=== PATIENT | female | born 1960 | race Two or more races ===

== ENCOUNTER 2017-01-01 00:39 | Inpatient (IN) | payer MEDICARE, OTHER ==
[~2017-01-01] VITALS: Ht 160 cm; Wt 54.4 kg
[2017-01-01] MEDS ORDERED: ONDANSETRON HCL 4MG/2ML VIAL IV STA (02:24)
[2017-01-01] MEDS ORDERED: SODIUM CHLORIDE 0.9% 1,000 ML IV ONE (02:24)
[2017-01-01] MEDS ORDERED: KETOROLAC 30MG/ML VIAL IV STA (02:24)
[2017-01-01 03:26] LABS: BASOPHILS % 0.3 % (0.0-2.0); EOSINOPHILS % 1.8 % (0.0-5.0); HEMATOCRIT. 39.9 % (36.0-48.0); HEMOGLOBIN. 13.5 g/dL (12.0-16.0); LYMPHOCYTES % 36.9 % (20.0-50.0); MEAN CORPUSCULAR HEMOGLOBIN 31.3 pg (28.0-32.0); MEAN CORPUSCULAR VOLUME 92.5 fL (81.0-99.0); MEAN PLATELET VOLUME 7.4 fl (7.4-10.4); MONOCYTES % 5.4 % (2.0-8.0); NEUTROPHILS % 55.6 % (40.0-76.0); PLATELET 242 x1000/uL (130-400); RED BLOOD CELL COUNT 4.31 mill/uL (4.2-5.4); RED CELL DISTRIBUTION WIDTH 13.6 % (11.6-14.6)
[2017-01-01 03:35] LABS: CHLORIDE 110 mEq/L (98-107)
[2017-01-01 03:36] LABS: PROTHROMBIN TIME 10.2 sec (9.4-11.6)
[2017-01-01 03:44] LABS: CARBON DIOXIDE 28 mEq/L (21-32)
[2017-01-01 03:50] LABS: CLARITY URINE CLOUDY (CLEAR); COLOR URINE YELLOW (YELLOW); GLUCOSE URINE NEGATIVE (NEGATIVE); KETONES URINE NEGATIVE (NEGATIVE); LEUKOCYTE ESTERASE URINE TRACE (NEGATIVE); NITRITE URINE NEGATIVE (NEGATIVE); OCCULT BLOOD URINE TRACE (NEGATIVE); PROTEIN URINE NEGATIVE (NEGATIVE); SPECIFIC GRAVITY URINE 1.035 (1.005-1.030)
[2017-01-01 05:02] LABS: *AMPHETAMINES SCREEN URINE NEGATIVE (NEGATIVE); *BARBITURATES SCREEN URINE NEGATIVE (NEGATIVE); *BENZODIAZEPINES SCREEN URINE NEGATIVE (NEGATIVE); *COCAINE SCREEN URINE NEGATIVE (NEGATIVE); CANNABINOID URINE SCREEN NEGATIVE (NEGATIVE); METHADONE URINE SCREEN NEGATIVE (NEGATIVE); OPIATES URINE SCREEN NEGATIVE (NEGATIVE); PHENCYCLIDINE URINE SCREEN NEGATIVE (NEGATIVE)
[2017-01-01] MEDS ORDERED: ASPIRIN 81MG TABLET PO ONE (05:45)
[2017-01-01] MEDS ORDERED: LEVOFLOXACIN 750MG PREMIX 150 ML IV ONE (06:00)
[2017-01-01] MEDS ORDERED: IOHEXOL-300 100 ML BOTTLE ONE (07:00)
[2017-01-01] MEDS ORDERED: KETOROLAC 15MG/ML VIAL IV ONE (08:30)
[2017-01-01] MEDS ORDERED: DOCUSATE SODIUM 100MG CAPSULE PO ONE (08:30)
[2017-01-01] MEDS ORDERED: SODIUM CHLORIDE 0.45% 1,000 ML IV SCH (08:38)
[2017-01-01] MEDS ORDERED: HYDROCODONE/ACETAMINOPHEN 5/325MG TABLET PO PRN (08:45)
[2017-01-01] MEDS ORDERED: ACETAMINOPHEN 650MG SUPP PR PRN (08:45)
[2017-01-01] MEDS ORDERED: SIMETHICONE 80MG TABLET CHEW PO PRN (08:45)
[2017-01-01] MEDS ORDERED: ACETAMINOPHEN 325MG TABLET PO PRN (08:45)
[2017-01-01] MEDS ORDERED: ONDANSETRON HCL 4MG/2ML VIAL IV PRN (08:45)
[2017-01-01] MEDS ORDERED: IPRATROPIUM/ALBUTEROL 0.5-3(2.5)MG/3ML NEB INH PRN (08:45)
[2017-01-01] MEDS ORDERED: ACETAMINOPHEN 650MG/20.3ML UDC GT PRN (08:45)
[2017-01-01] MEDS ORDERED: MAGNESIUM/ALUMINUM HYDROXIDE/SIMETHICONE 30ML UDC PO PRN (08:45)
[2017-01-01] MEDS ORDERED: NA PHOS,M-B/NA PHOS,DI-BA ENEMA 118ML PR PRN (08:45)
[2017-01-01] MEDS ORDERED: SODIUM CHLORIDE 0.9% 100 ML IV ONE (08:45)
[2017-01-01] MEDS ORDERED: CLONIDINE 0.1MG TABLET PO PRN (08:45)
[2017-01-01] MEDS ORDERED: DIPHENHYDRAMINE 50MG/ML VIAL IV PRN (08:45)
[2017-01-01 10:35] VITALS: BP 145/91
[2017-01-01] MEDS: ENOXAPARIN 40MG/0.4ML SYR SUBCUT SCH ×2 (10:46→11:49)
[2017-01-01] MEDS ORDERED: MAGNESIUM/ALUMINUM HYDROXIDE/SIMETHICONE 30ML UDC PO NR (10:50)
[2017-01-01 12:00] VITALS: BP 115/76
[2017-01-01] MEDS ORDERED: MAGNESIUM CITRATE 300ML SOLUTION PO NR (12:00)
[2017-01-01] MEDS: SODIUM CHLORIDE 0.45% 1,000 ML IV SCH (12:34)
[2017-01-01] MEDS: SODIUM CHLORIDE 0.9% INJ 3ML FLUSH IVF SCH (14:25)
[2017-01-01 16:00] VITALS: BP 142/71
[2017-01-01 18:25] LABS: T4 FREE 0.96 ng/dL (0.76-1.46)
[2017-01-01 18:39] LABS: FOLIC ACID (FOLATE) SERUM 11.5 ng/mL (>5.38)
[2017-01-01 20:00] VITALS: BP 123/81
[2017-01-02] VITALS: BP 110/52
[2017-01-02] MEDS: SODIUM CHLORIDE 0.45% 1,000 ML IV SCH (02:26)
[2017-01-02] MEDS: SODIUM CHLORIDE 0.9% INJ 3ML FLUSH IVF SCH ×2 (02:26→06:00)
[2017-01-02 04:00] VITALS: BP 100/58
[2017-01-04] MEDS ORDERED: NO HOME MEDICATIONS (07:59)
== END 2017-01-02 08:50 | disposition left against medical advice (07) | DRG 690 ==
LOC: ER 00:39 → EDBD 00:39 → 6EST 03:12 → EDBEDREQ 06:01 → ENRESERV 09:12
PROVIDERS: ADMIT Family Medicine; ATTEND Family Medicine
DX: N39.0 Urinary tract infection, site not specified (principal); G62.9 Polyneuropathy, unspecified; R53.1 Weakness; R26.9 Unspecified abnormalities of gait and mobility; M48.061 Spinal stenosis, lumbar region without neurogenic claudication; M51.36 Other intervertebral disc degeneration, lumbar region; Z99.3 Dependence on wheelchair; K59.09 Other constipation; H53.8 Other visual disturbances; I10 Essential (primary) hypertension; H54.7 Unspecified visual loss; M47.892 Other spondylosis, cervical region; M54.9 Dorsalgia, unspecified
CPT/HCPCS: 36415; 70450; 71010; 72125; 72128; 72148; 74000; 74177; 80053; 80305; 81001; 82550; 82553; 82607; 82746; 83036; 83690; 84439; 84443; 84481; 85025; 85610; 93005; 96365; 96366; 96375; 96376; 97162; 97166; 99285; A6261; G0482; J1650; J1885; J1956; J2405; J7030; J7050; Q9967; A4315

== ENCOUNTER 2018-02-04 22:25 | Inpatient (IN) | payer MEDICARE, OTHER ==
[~2018-02-04] VITALS: Ht 165.1 cm; Wt 67.1 kg
[~2018-02-04 22:25] MED LIST: LEVO500T2 MT
[2018-02-05] VITALS: BP 107/65
[2018-02-05] MEDS ORDERED: DIATR MEGLU/DIATRIZOATE SOLN 30ML ONE (04:30)
[2018-02-05 06:20] LABS: CLARITY URINE CLEAR (CLEAR); COLOR URINE YELLOW (YELLOW); KETONES URINE NEGATIVE (NEGATIVE); LEUKOCYTE ESTERASE URINE TRACE (NEGATIVE); NITRITE URINE NEGATIVE (NEGATIVE); OCCULT BLOOD URINE NEGATIVE (NEGATIVE); PROTEIN URINE NEGATIVE (NEGATIVE); UROBILINOGEN URINE 0.2 E.U./dL (0.2-1.0)
[2018-02-05 06:50] LABS: BASOPHILS % 0.8 % (0.0-2.0); EOSINOPHILS % 2.7 % (0.0-5.0); HEMATOCRIT. 38.3 % (36.0-48.0); HEMOGLOBIN. 12.9 g/dL (12.0-16.0); LYMPHOCYTES % 40.9 % (20.0-50.0); MEAN CORPUSCULAR HEMOGLOBIN 30.9 pg (28.0-32.0); MEAN CORPUSCULAR VOLUME 91.8 fL (81.0-99.0); MEAN PLATELET VOLUME 8.5 fl (7.4-10.4); MONOCYTES % 5.1 % (2.0-8.0); NEUTROPHILS % 50.5 % (40.0-76.0); PLATELET 295 x1000/uL (130-400); RED BLOOD CELL COUNT 4.18 mill/uL (4.2-5.4); RED CELL DISTRIBUTION WIDTH 13.7 % (11.6-14.6)
[2018-02-05] MEDS ORDERED: ACETAMINOPHEN 325MG TABLET PO ONE (08:30)
[2018-02-05] MEDS ORDERED: NA PHOS,M-B/NA PHOS,DI-BA ENEMA 118ML PR ONE (08:30)
[2018-02-05] MEDS ORDERED: SODIUM CHLORIDE 0.9% 1,000 ML IV ONE (08:30)
[2018-02-05 09:32] LABS: CHLORIDE 107 mEq/L (98-107)
[2018-02-05] MEDS ORDERED: ONDANSETRON HCL 4MG/2ML INJ IV PRN (10:00)
[2018-02-05 10:50] VITALS: BP 143/71
[2018-02-05 16:00] VITALS: BP 152/86
[2018-02-05] MEDS ORDERED: LACTULOSE 20G/30ML UDC PO PRN (18:15)
[2018-02-05] MEDS ORDERED: IOHEXOL-300 100 ML BOTTLE ONE (19:03)
[2018-02-05 20:00] VITALS: BP 139/91
[2018-02-05] MEDS: ACETAMINOPHEN 325MG TABLET PO PRN (22:11)
[2018-02-05] MEDS: CEFTRIAXONE 1 G PREMIX 50 ML IV SCH (23:15)
[2018-02-05] MEDS: DOCUSATE SODIUM 250MG CAPSULE PO SCH (23:16)
[2018-02-06] VITALS: BP 107/65
[2018-02-06 04:00] VITALS: BP 102/63
[2018-02-06 08:00] VITALS: BP 136/78
[2018-02-06] MEDS: BISACODYL 10MG SUPP PR PRN (08:46)
[2018-02-06] MEDS: DOCUSATE SODIUM 250MG CAPSULE PO SCH (08:46)
[2018-02-06 12:00] VITALS: BP 108/65
[2018-02-06 12:15] LABS: BASOPHILS % 0.4 % (0.0-2.0); EOSINOPHILS % 2.6 % (0.0-5.0); HEMATOCRIT. 36.3 % (36.0-48.0); HEMOGLOBIN. 12.1 g/dL (12.0-16.0); LYMPHOCYTES % 35.4 % (20.0-50.0); MEAN CORPUSCULAR HEMOGLOBIN 30.3 pg (28.0-32.0); MEAN CORPUSCULAR VOLUME 90.7 fL (81.0-99.0); MEAN PLATELET VOLUME 7.6 fl (7.4-10.4); MONOCYTES % 5.4 % (2.0-8.0); NEUTROPHILS % 56.2 % (40.0-76.0); PLATELET 254 x1000/uL (130-400); RED CELL DISTRIBUTION WIDTH 13.7 % (11.6-14.6)
[2018-02-06] MEDS: ACETAMINOPHEN 325MG TABLET PO PRN (12:24)
[2018-02-06 12:31] LABS: CHLORIDE 106 mEq/L (98-107)
[2018-02-06] MEDS: CEFTRIAXONE 1 G PREMIX 50 ML IV SCH (18:16)
[2018-02-06 20:00] VITALS: BP 94/51
[2018-02-07 08:00] VITALS: BP 120/77
[2018-02-07] MEDS: DOCUSATE SODIUM 250MG CAPSULE PO SCH (08:29)
[2018-02-07 12:00] VITALS: BP 126/76
[2018-02-07] MEDS: BISACODYL 10MG SUPP PR PRN (13:52)
[2018-02-07 16:00] VITALS: BP 117/78
[2018-02-07] MEDS: MULTIVITAMINS,THER W-MINERALS TABLET PO SCH (16:13)
[2018-02-07 17:54] LABS: *AMPHETAMINES SCREEN URINE NEGATIVE (NEGATIVE); *BARBITURATES SCREEN URINE NEGATIVE (NEGATIVE); *BENZODIAZEPINES SCREEN URINE NEGATIVE (NEGATIVE); *COCAINE SCREEN URINE NEGATIVE (NEGATIVE); CANNABINOID URINE SCREEN NEGATIVE (NEGATIVE); METHADONE URINE SCREEN NEGATIVE (NEGATIVE)
[2018-02-07 17:57] LABS: PHENCYCLIDINE URINE SCREEN NEGATIVE (NEGATIVE)
[2018-02-07 17:58] LABS: OPIATES URINE SCREEN NEGATIVE (NEGATIVE)
[2018-02-07] MEDS: CEFTRIAXONE 1 G PREMIX 50 ML IV SCH (18:17)
[2018-02-07 20:00] VITALS: BP 130/70
[2018-02-07] MEDS: ASCORBIC ACID 500 MG TABLET PO SCH (21:17)
[2018-02-08] VITALS: BP 128/69
[2018-02-08 04:00] VITALS: BP 135/81
[2018-02-08 08:00] VITALS: BP 100/59
[2018-02-08] MEDS: ASCORBIC ACID 500 MG TABLET PO SCH (09:04)
[2018-02-08] MEDS: MULTIVITAMINS,THER W-MINERALS TABLET PO SCH (09:04)
[2018-02-08] MEDS: DOCUSATE SODIUM 250MG CAPSULE PO SCH (09:04)
[2018-02-08] MEDS: BISACODYL 10MG SUPP PR PRN (14:07)
[2018-02-08 14:46] VITALS: BP 100/59
== END 2018-02-08 18:55 | disposition home or self-care (01) | DRG 563 ==
LOC: ER 23:30 → 6EST 02-05 08:47 → EDUNIT# 02-05 08:47 → EDBD 02-05 08:47 → EDBEDREQ 02-05 08:55 → ENRESERV 02-05 09:59
PROVIDERS: ADMIT Internal Medicine; ATTEND Internal Medicine
DX: S82.251A Displaced comminuted fracture of shaft of right tibia, initial encounter for closed fracture (principal); E44.1 Mild protein-calorie malnutrition; N39.0 Urinary tract infection, site not specified; S92.312A Displaced fracture of first metatarsal bone, left foot, initial encounter for closed fracture; H54.7 Unspecified visual loss; R62.7 Adult failure to thrive; R15.9 Full incontinence of feces; W18.39XA Other fall on same level, initial encounter; R32 Unspecified urinary incontinence; D25.9 Leiomyoma of uterus, unspecified; L89.220 Pressure ulcer of left hip, unstageable; K59.00 Constipation, unspecified; Z91.81 History of falling; Y93.89 Activity, other specified; Y92.89 Other specified places as the place of occurrence of the external cause; Y99.8 Other external cause status; Z68.24 Body mass index [BMI] 24.0-24.9, adult
CPT/HCPCS: 36415; 73551; 73590; 73620; 73700; 74018; 74177; 80048; 80305; 82962; 93005; 93970; 96360; 97167; 99285; A6261; J0696; J7030; J7040; Q9963; Q9967